=== PATIENT | male | born 1975 | race Caucasian/White ===

== ENCOUNTER 2016-06-14 05:26 | Inpatient (IN) | payer MEDICARE ==
[~2016-06-14] VITALS: Ht 170.2 cm; Wt 71.9 kg
[~2016-06-14 05:26] MED LIST: ALPR0.25 PO; FOLI-17 PO; MAGN400T26 PO; MULT-6 PO; OMEP-110 PO; ONDA4TAB10 PO; ONDA4TAB7 PO; QUET200T4 PO; SERT50TA PO; THIA100T10 PO; TRAM50TA2 PO
[2016-06-14] MEDS ORDERED: ONDANSETRON 2MG/ML, 2ML IVPush ONE (06:00)
[2016-06-14] MEDS ORDERED: SODIUM CHLORIDE 0.9% 1,000ML IVBOLUS ONE (06:00)
[2016-06-14] MEDS ORDERED: FAMOTIDINE 20 MG/2 ML IVP ONE (06:00)
[2016-06-14] MEDS ORDERED: MAALOX/HYOSCYAMINE/LIDOCAINE 45 ML BOTTLE PO ONE (06:00)
[2016-06-14] MEDS ORDERED: DICYCLOMINE 10 MG/ML, 2ML IM ONE (06:00)
[2016-06-14] MEDS ORDERED: SODIUM CHLORIDE FLUSH 10ML SYR IVF ONE (06:00)
[2016-06-14] MEDS ORDERED: ONDANSETRON 2MG/ML, 2ML ONE (06:13)
[2016-06-14] MEDS ORDERED: MAALOX/HYOSCYAMINE/LIDOCAINE 45 ML BOTTLE ONE (06:13)
[2016-06-14] MEDS ORDERED: FAMOTIDINE 20 MG/2 ML ONE (06:13)
[2016-06-14 07:03] LABS: HEMOGLOBIN 15.4 g/dL (13.7-18.0)
[2016-06-14 07:15] LABS: ASPARTATE AMINO TRANSFERASE 53 U/L (15-37); BLOOD UREA NITROGEN 42 mg/dL (7-18)
[2016-06-14] MEDS ORDERED: POTASSIUM CHLORIDE 20 MEQ TAB.ER.PRT ONE (07:22)
[2016-06-14] MEDS ORDERED: POTASSIUM CHLORIDE 20 MEQ TAB.ER.PRT PO ONE (07:30)
[2016-06-14] MEDS ORDERED: POTASSIUM CHLORIDE 40 MEQ in SODIUM CHLORIDE 0.9% 500 ML IV ONE (08:30)
[2016-06-14] MEDS: NS + 20MEQ KCL 1,000 ML IV SCH ×3 (09:16→22:33)
[2016-06-14] MEDS ORDERED: PROMETHAZINE 25 MG/ML, 1ML IM PRN (09:30)
[2016-06-14] MEDS ORDERED: POLYETHYLENE GLYCOL 17 GM PACKET PO PRN (09:30)
[2016-06-14] MEDS ORDERED: ONDANSETRON 2MG/ML, 2ML IVP PRN (09:30)
[2016-06-14] MEDS ORDERED: DOCUSATE 100 MG CAPSULE PO PRN (09:30)
[2016-06-14] MEDS ORDERED: OXYcodone IR 5MG TABLET PO PRN (09:30)
[2016-06-14] MEDS ORDERED: ACETAMINOPHEN 325 MG TABLET PO PRN (09:30)
[2016-06-14] MEDS ORDERED: CEFTRIAXONE PMX 1GM/50ML 50 ML ONE (10:02)
[2016-06-14] MEDS ORDERED: MORPHINE SULFATE 4 MG/ML, 1ML ONE (10:02)
[2016-06-14] MEDS: CEFTRIAXONE PMX 1GM/50ML 50 ML IV SCH (10:08)
[2016-06-14] MEDS: MORPHINE SULFATE 4 MG/ML, 1ML IVPush PRN ×2 (10:09→13:05)
[2016-06-14] MEDS ORDERED: PROMETHAZINE 25 MG/ML, 1ML ONE (11:03)
[2016-06-14 14:06] VITALS: BP 109/72
[2016-06-14 16:22] LABS: BLOOD UREA NITROGEN 35 mg/dL (7-18)
[2016-06-14] MEDS ORDERED: FLU VACC QS2016-17 (36MOS+)UP/PF 0.5 ML IM-VACC ONE (17:00)
[2016-06-14] MEDS: POTASSIUM CHLORIDE 20 MEQ TAB.ER.PRT PO SCH (19:09)
[2016-06-14 19:31] VITALS: BP 111/67
[2016-06-14 23:59] LABS: BLOOD UREA NITROGEN 26 mg/dL (7-18)
[2016-06-15] MEDS ORDERED: POTASSIUM CHLORIDE 20 MEQ TAB.ER.PRT PO ONE (00:30)
[2016-06-15] MEDS: NS + 40MEQ KCL 1,000 ML IV SCH ×3 (00:53→15:37)
[2016-06-15 01:24] VITALS: BP 126/86
[2016-06-15] MEDS: MORPHINE SULFATE 4 MG/ML, 1ML IVPush PRN ×5 (01:34→15:36)
[2016-06-15 05:21] LABS: BLOOD UREA NITROGEN 20 mg/dL (7-18)
[2016-06-15 05:22] LABS: HEMOGLOBIN 12.8 g/dL (13.7-18.0)
[2016-06-15 07:43] VITALS: BP 114/76
[2016-06-15] MEDS: CEFTRIAXONE PMX 1GM/50ML 50 ML IV SCH (09:02)
[2016-06-15] MEDS: POTASSIUM CHLORIDE 20 MEQ TAB.ER.PRT PO SCH ×2 (09:02→12:03)
[2016-06-15 14:34] VITALS: BP 120/81
[2016-06-15] MEDS: OXYcodone IR 5MG TABLET PO PRN (18:33)
[2016-06-15 19:49] VITALS: BP 115/76
[2016-06-16] MEDS: OXYcodone IR 5MG TABLET PO PRN ×3 (01:06→09:32)
[2016-06-16 01:43] VITALS: BP 126/83
[2016-06-16 04:36] LABS: BLOOD UREA NITROGEN 11 mg/dL (7-18)
[2016-06-16 07:07] VITALS: BP 127/86
[2016-06-16] MEDS: CEFTRIAXONE PMX 1GM/50ML 50 ML IV SCH (09:23)
== END 2016-06-16 11:05 | disposition home or self-care (01) | DRG 871 ==
LOC: ED 08:17 → EDIP 08:18 → ED 08:59 → 3NE 12:35 → DCLOUNGE 06-16 10:53
PROVIDERS: ADMIT Family Medicine; ATTEND Family Medicine
DX: A41.9 Sepsis, unspecified organism (principal); N17.0 Acute kidney failure with tubular necrosis; E87.1 Hypo-osmolality and hyponatremia; E86.0 Dehydration; E87.6 Hypokalemia; F20.9 Schizophrenia, unspecified; F31.9 Bipolar disorder, unspecified; G40.909 Epilepsy, unspecified, not intractable, without status epilepticus; Z86.19 Personal history of other infectious and parasitic diseases
CPT/HCPCS: 36415; 80048; 80053; 83735; 85025; 90686; 93005; 96361; 96365; 96366; 96372; 96375; J0696; J2405; J2550; J3480; J0500; J7030; J7040; S0028

== ENCOUNTER 2016-09-18 16:06 | Emergency (ER) | payer MEDICARE ==
[~2016-09-18] VITALS: Ht 180.3 cm; Wt 84.0 kg
[2016-09-18] MEDS ORDERED: SODIUM CHLORIDE 0.9% 1,000ML IVBOLUS ONE ×2 (16:30→17:30)
[2016-09-18 16:48] LABS: BLOOD UREA NITROGEN 4 mg/dL (7-18)
[2016-09-18 16:59] LABS: ASPARTATE AMINO TRANSFERASE 30 U/L (15-37)
[2016-09-18 17:00] LABS: ACETAMINOPHEN < 2 mcg/mL (10-30)
[2016-09-18] MEDS ORDERED: POTASSIUM CHLORIDE 20 MEQ TAB.ER.PRT ONE (17:18)
[2016-09-18] MEDS ORDERED: POTASSIUM CHLORIDE 20 MEQ TAB.ER.PRT PO ONE (17:30)
[2016-09-18 17:33] LABS: DAU SCREEN DISCLAIMER
[2016-09-18 19:47] VITALS: BP 104/70
== END 2016-09-18 19:59 | disposition home or self-care (01) ==
LOC: ED 16:59
DX: F10.120 Alcohol abuse with intoxication, uncomplicated (principal); F41.9 Anxiety disorder, unspecified; E87.6 Hypokalemia; F31.9 Bipolar disorder, unspecified; F20.9 Schizophrenia, unspecified
CPT/HCPCS: 36415; 80053; 80307; 80329; 81003; 85025; 96360; 96361; 99285; J7030; G0480

== ENCOUNTER 2016-11-08 20:19 | Inpatient (IN) | payer MEDICARE, MEDICAID ==
[~2016-11-08] VITALS: Ht 172.7 cm; Wt 79.7 kg
[~2016-11-08 20:19] MED LIST changes: +QUET25TA5 PO; +SERT25TA PO
[2016-11-08] MEDS ORDERED: FAMOTIDINE 20 MG/2 ML ONE (20:43)
[2016-11-08] MEDS ORDERED: ONDANSETRON 2MG/ML, 2ML ONE (20:43)
[2016-11-08 20:49] LABS: HEMATOCRIT 51.6 % (39.2-51.8); WHITE BLOOD COUNT 12.3 x10^3/uL (3.4-10)
[2016-11-08] MEDS ORDERED: FAMOTIDINE 20 MG/2 ML IVP ONE (21:00)
[2016-11-08] MEDS ORDERED: SODIUM CHLORIDE 0.9% 1,000ML IVBOLUS ONE ×2 (21:00→21:30)
[2016-11-08] MEDS ORDERED: SODIUM CHLORIDE FLUSH 10ML SYR IVF ONE (21:00)
[2016-11-08] MEDS ORDERED: ONDANSETRON 2MG/ML, 2ML IVPush ONE (21:00)
[2016-11-08 21:02] LABS: ASPARTATE AMINO TRANSFERASE 72 U/L (15-37); BLOOD UREA NITROGEN 42 mg/dL (7-18)
[2016-11-08 21:21] LABS: DAU SCREEN DISCLAIMER
[2016-11-08] MEDS ORDERED: SODIUM CHLORIDE 0.9% 1,000 ML IV ONE (21:59)
[2016-11-08] MEDS ORDERED: SODIUM CHLORIDE FLUSH 10ML SYR IVF PRN (22:00)
[2016-11-08] MEDS ORDERED: NS + 20MEQ KCL 1,000 ML IV ONE (22:22)
[2016-11-08] MEDS: NS + 20MEQ KCL 1,000 ML IV SCH (22:29)
[2016-11-08] MEDS ORDERED: LORazepam 2 MG/ML, 1ML IVPush PRN (22:30)
[2016-11-08] MEDS ORDERED: METOCLOPRAMIDE 5 MG/ML, 2ML IVPush PRN (22:30)
[2016-11-08] MEDS ORDERED: ACETAMINOPHEN 325 MG TABLET PO PRN (22:30)
[2016-11-08] MEDS: ENOXAPARIN 40 MG/0.4 ML SQ SCH (23:35)
[2016-11-08 23:41] VITALS: BP 128/73
[2016-11-09 02:00] VITALS: BP 129/60
[2016-11-09] MEDS: NS + 20MEQ KCL 1,000 ML IV SCH (04:40)
[2016-11-09 05:42] LABS: HEMATOCRIT 41.8 % (39.2-51.8); HEMOGLOBIN 13.9 g/dL (13.7-18.0); WHITE BLOOD COUNT 10.2 x10^3/uL (3.4-10)
[2016-11-09] MEDS: morphine SULFATE 10 MG/ML, 1ML IVPush PRN ×3 (05:50→20:18)
[2016-11-09] MEDS: ONDANSETRON 2MG/ML, 2ML IVPush PRN ×2 (05:50→21:58)
[2016-11-09 05:55] LABS: BLOOD UREA NITROGEN 33 mg/dL (7-18)
[2016-11-09] MEDS ORDERED: MORPHINE SULFATE 4 MG/ML, 1ML ONE (09:14)
[2016-11-09 09:40] VITALS: BP 113/74
[2016-11-09] MEDS ORDERED: POTASSIUM CHLORIDE 40 MEQ in SODIUM CHLORIDE 0.9% 500 ML IV ONE (10:00)
[2016-11-09] MEDS: PROMETHAZINE 25 MG/ML, 1ML IM PRN (11:19)
[2016-11-09] MEDS: PANTOPRAZOLE 40 MG IV IVPush SCH (14:37)
[2016-11-09 15:59] VITALS: BP 119/79
[2016-11-09 19:03] VITALS: BP 151/91
[2016-11-09] MEDS: OXYcodone IR 5MG TABLET PO PRN (21:58)
[2016-11-09] MEDS: ENOXAPARIN 40 MG/0.4 ML SQ SCH (22:04)
[2016-11-10 02:08] VITALS: BP 104/67
[2016-11-10] MEDS: ONDANSETRON 2MG/ML, 2ML IVPush PRN ×3 (04:17→19:44)
[2016-11-10] MEDS: morphine SULFATE 10 MG/ML, 1ML IVPush PRN ×3 (04:18→19:44)
[2016-11-10 06:15] LABS: HEMATOCRIT 45.2 % (39.2-51.8); HEMOGLOBIN 14.7 g/dL (13.7-18.0)
[2016-11-10 06:27] LABS: BLOOD UREA NITROGEN 14 mg/dL (7-18)
[2016-11-10 06:30] LABS: IS PT STATUS REG ER OR PRE ER? NO
[2016-11-10 06:31] LABS: ASPARTATE AMINO TRANSFERASE 61 U/L (15-37)
[2016-11-10 07:50] VITALS: BP 110/70
[2016-11-10] MEDS: PANTOPRAZOLE 40 MG IV IVPush SCH (08:05)
[2016-11-10] MEDS: PROMETHAZINE 25 MG/ML, 1ML IM PRN ×2 (08:05→13:37)
[2016-11-10] MEDS ORDERED: POTASSIUM CHLORIDE 40 MEQ in SODIUM CHLORIDE 0.9% 1,000 ML IV SCH (08:30)
[2016-11-10] MEDS: POTASSIUM CHLORIDE 20 MEQ TAB.ER.PRT PO SCH ×2 (10:03→17:40)
[2016-11-10] MEDS: OXYcodone IR 5MG TABLET PO PRN ×2 (13:37→22:27)
[2016-11-10 15:18] VITALS: BP 125/85
[2016-11-10 19:35] VITALS: BP 130/76
[2016-11-10] MEDS: POTASSIUM CHLORIDE 40 MEQ in SODIUM CHLORIDE 0.9% 1,000 ML IV SCH (19:44)
[2016-11-10] MEDS: ENOXAPARIN 40 MG/0.4 ML SQ SCH (22:29)
[2016-11-11 01:29] VITALS: BP 109/84
[2016-11-11] MEDS: morphine SULFATE 10 MG/ML, 1ML IVPush PRN (04:19)
[2016-11-11] MEDS: POTASSIUM CHLORIDE 40 MEQ in SODIUM CHLORIDE 0.9% 1,000 ML IV SCH ×2 (05:09→16:24)
[2016-11-11 07:19] VITALS: BP 119/79
[2016-11-11] MEDS: ONDANSETRON 2MG/ML, 2ML IVPush PRN (08:08)
[2016-11-11] MEDS: PANTOPRAZOLE 40 MG IV IVPush SCH (08:08)
[2016-11-11] MEDS: POTASSIUM CHLORIDE 20 MEQ TAB.ER.PRT PO SCH ×2 (08:08→18:20)
[2016-11-11] MEDS: OXYcodone IR 5MG TABLET PO PRN ×3 (12:36→23:44)
[2016-11-11 12:44] LABS: BLOOD UREA NITROGEN 10 mg/dL (7-18)
[2016-11-11] MEDS: ONDANSETRON ODT 4 MG PO PRN ×3 (12:45→23:44)
[2016-11-11 14:45] VITALS: BP 113/86
[2016-11-11 19:51] VITALS: BP 125/85
[2016-11-11] MEDS: ENOXAPARIN 40 MG/0.4 ML SQ SCH (22:36)
[2016-11-12 01:52] VITALS: BP 119/82
[2016-11-12] MEDS: ONDANSETRON ODT 4 MG PO PRN (04:10)
[2016-11-12] MEDS: OXYcodone IR 5MG TABLET PO PRN (04:10)
[2016-11-12 07:41] VITALS: BP 100/65
[2016-11-12] MEDS ORDERED: ONDA4TAB13 PO (10:21)
[2016-11-12 13:00] VITALS: BP 132/72
== END 2016-11-12 13:15 | disposition home or self-care (01) | DRG 391 ==
LOC: SUATTDRO 21:56 → ED 21:58 → EDIP 22:00 → ED 22:02 → 4NOR 23:36
PROC: 0T9B70Z Drainage of Bladder with Drainage Device, Via Natural or Artificial Opening (ICD-10-PCS; principal; 2016-11-10)
DX: K52.9 Noninfective gastroenteritis and colitis, unspecified (principal); N17.0 Acute kidney failure with tubular necrosis; E87.1 Hypo-osmolality and hyponatremia; E87.6 Hypokalemia; E86.0 Dehydration; E87.5 Hyperkalemia; E87.8 Other disorders of electrolyte and fluid balance, not elsewhere classified; F20.9 Schizophrenia, unspecified; F43.10 Post-traumatic stress disorder, unspecified; G40.909 Epilepsy, unspecified, not intractable, without status epilepticus; K76.0 Fatty (change of) liver, not elsewhere classified; S00.12XA Contusion of left eyelid and periocular area, initial encounter; K29.20 Alcoholic gastritis without bleeding; F10.10 Alcohol abuse, uncomplicated
CPT/HCPCS: 36415; 76700; 80048; 80053; 80307; 81001; 81003; 83690; 83735; 84100; 84484; 85025; 87086; 96361; 96374; J1650; J2405; J2550; J3480; Q0162; C9113; J2060; J2270; J2765; J7030; J7040; S0028

== ENCOUNTER 2017-04-02 04:08 | Emergency (ER) | payer MEDICARE, MEDICAID ==
[~2017-04-02] VITALS: Ht 172.7 cm; Wt 84.7 kg
[~2017-04-02 04:08] MED LIST changes: +NAPR-856 PO; +ONDA4TAB13 PO
[2017-04-02 08:15] VITALS: BP 119/69
== END 2017-04-02 08:56 | disposition home or self-care (01) ==
LOC: ED 06:12
DX: S53.401A Unspecified sprain of right elbow, initial encounter (principal); S00.83XA Contusion of other part of head, initial encounter; Y04.8XXA Assault by other bodily force, initial encounter; Y93.72 Activity, wrestling; Y92.410 Unspecified street and highway as the place of occurrence of the external cause; Y99.8 Other external cause status
CPT/HCPCS: 70100; 71045; 93005; 99284

== ENCOUNTER 2017-05-09 03:25 | Emergency (ER) | payer MEDICARE, MEDICAID ==
[~2017-05-09] VITALS: Ht 170.2 cm; Wt 70.0 kg
[2017-05-09] MEDS ORDERED: QUET50TA5 PO (04:09)
[2017-05-09] MEDS ORDERED: SERT25TA PO (04:09)
[2017-05-09] MEDS ORDERED: ALPR1TAB2 PO (04:09)
[2017-05-09] MEDS ORDERED: LORazepam 1MG TABLET ONE (04:45)
[2017-05-09] MEDS ORDERED: LORazepam 1MG TABLET PO ONE (05:00)
[2017-05-09 05:12] LABS: AMPHETAMINE SCREEN, URINE Negative (Negative); BARBITURATE SCREEN, URINE Negative (Negative); BENZODIAZEPINE SCREEN, URINE Negative (Negative); CANNABINOID SCREEN, URINE Negative (Negative); COCAINE SCREEN, URINE Negative (Negative); METHADONE SCREEN, URINE Negative (Negative); OPIATE SCREEN, URINE Negative (Negative)
[2017-05-09 05:20] LABS: BASOPHILS # (AUTO) 0.09 x10^3/uL (0-0.1); BASOPHILS % (AUTO) 1 % (0-1); EOSINOPHILS # (AUTO) 0.08 x10^3/uL (0-0.4); EOSINOPHILS % (AUTO) 1 % (1-7); LYMPHOCYTES # (AUTO) 2.49 x10^3/uL (1-3.4); LYMPHOCYTES % (AUTO) 32 % (22-44); MD NO; MEAN CORPUSCULAR HEMOGLOBIN 32.1 pg (27.5-34.5); MEAN CORPUSCULAR HGB CONC 33.4 g/dL (33.2-36.2); MEAN PLATELET VOLUME 8.5 fL (7.4-10.4); MONOCYTES # (AUTO) 1.01 x10^3/uL (0.2-0.8); MONOCYTES % (AUTO) 13 % (2-9); NEUTROPHILS # (AUTO) 4.04 x10^3/uL (1.8-6.8); NEUTROPHILS % (AUTO) 53 % (42-75); PLATELET COUNT 376 x10^3/uL (130-400); RED BLOOD COUNT 5.18 x10^6/uL (4.38-5.82)
[2017-05-09 05:33] LABS: ANION GAP 10 mmol/L (5-15); CALCIUM 8.3 mg/dL (8.5-10.1); CHLORIDE 97 mmol/L (98-107)
[2017-05-09 05:37] LABS: ALANINE AMINOTRANSFERASE 52 U/L (12-78); ALKALINE PHOSPHATASE 93 U/L (45-117); BILIRUBIN,TOTAL 0.9 mg/dL (0.2-1.0); CREATININE 1.05 mg/dL (0.7-1.3); TOTAL PROTEIN 8.9 g/dL (6.4-8.2)
[2017-05-09 05:44] LABS: ACETAMINOPHEN < 2 mcg/mL (10-30); SALICYLATE LEVEL < 1.7 mg/dL (2.8-20.0)
[2017-05-09 05:56] LABS: TROPONIN I < 0.015 ng/mL (0.000-0.045)
[2017-05-09] MEDS ORDERED: ONDANSETRON 2MG/ML, 2ML ONE ×3 (07:18→13:04)
[2017-05-09] MEDS ORDERED: ONDANSETRON 2MG/ML, 2ML IVPush ONE ×3 (07:30→17:30)
[2017-05-09 16:53] VITALS: BP 147/97
== END 2017-05-09 16:55 | disposition home or self-care (01) ==
LOC: ED 03:35
DX: F10.221 Alcohol dependence with intoxication delirium (principal); F31.9 Bipolar disorder, unspecified; F20.9 Schizophrenia, unspecified; F43.10 Post-traumatic stress disorder, unspecified
CPT/HCPCS: 36415; 80053; 80307; 80329; 84484; 85025; 93005; 96374; 96376; 99285; J2405; G0480

== ENCOUNTER 2017-06-17 01:54 | Emergency (ER) | payer MEDICARE, MEDICAID ==
[~2017-06-17] VITALS: Ht 172.7 cm; Wt 86.0 kg
[~2017-06-17 01:54] MED LIST changes: +ALPR1TAB2 PO; +QUET50TA5 PO
[2017-06-17] MEDS ORDERED: OMNIPAQUE 350 MG/ML, 100ML BOTTLE ONE (02:49)
[2017-06-17] MEDS ORDERED: SODIUM CHLORIDE 0.9% 1,000ML IVBOLUS ONE (03:00)
[2017-06-17 03:33] LABS: BASOPHILS # (AUTO) 0.02 x10^3/uL (0-0.1); BASOPHILS % (AUTO) 0 % (0-1); EOSINOPHILS # (AUTO) 0.04 x10^3/uL (0-0.4); EOSINOPHILS % (AUTO) 1 % (1-7); LYMPHOCYTES # (AUTO) 1.31 x10^3/uL (1-3.4); LYMPHOCYTES % (AUTO) 20 % (22-44); MD NO; MEAN CORPUSCULAR HEMOGLOBIN 32.2 pg (27.5-34.5); MEAN CORPUSCULAR HGB CONC 33.6 g/dL (33.2-36.2); MEAN CORPUSCULAR VOLUME 95.8 fL (81-97); MONOCYTES # (AUTO) 0.52 x10^3/uL (0.2-0.8); MONOCYTES % (AUTO) 8 % (2-9); NEUTROPHILS % (AUTO) 71 % (42-75); PLATELET COUNT 170 x10^3/uL (130-400); RED BLOOD COUNT 4.83 x10^6/uL (4.38-5.82); RED CELL DISTRIBUTION WIDTH 14.6 % (9.4-14.8)
[2017-06-17 03:43] LABS: ANION GAP 13 mmol/L (5-15); CHLORIDE 100 mmol/L (98-107); CREATININE 0.98 mg/dL (0.7-1.3)
[2017-06-17] MEDS ORDERED: ONDANSETRON 2MG/ML, 2ML ONE (05:24)
[2017-06-17] MEDS ORDERED: ACETAMINOPHEN 500 MG TABLET ONE (05:24)
[2017-06-17] MEDS ORDERED: ONDANSETRON 2MG/ML, 2ML IVPush ONE (05:30)
[2017-06-17] MEDS ORDERED: ACETAMINOPHEN 500 MG TABLET PO ONE (05:30)
[2017-06-17 05:36] VITALS: BP 134/84
== END 2017-06-17 05:39 | disposition home or self-care (01) ==
LOC: ED 04:08
DX: S06.891A Other specified intracranial injury with loss of consciousness of 30 minutes or less, initial encounter (principal); S30.1XXA Contusion of abdominal wall, initial encounter; S20.212A Contusion of left front wall of thorax, initial encounter; F10.129 Alcohol abuse with intoxication, unspecified; W10.0XXA Fall (on)(from) escalator, initial encounter; Y93.89 Activity, other specified; Y92.89 Other specified places as the place of occurrence of the external cause; Y99.8 Other external cause status; Z79.899 Other long term (current) drug therapy
CPT/HCPCS: 36415; 70450; 71260; 72125; 74177; 80048; 80307; 83690; 85025; 96361; 96374; 99285; J2405; J7030; Q9967

== ENCOUNTER 2017-09-17 23:33 | Inpatient (IN) | payer MEDICARE, MEDICAID ==
[~2017-09-17] VITALS: Ht 172.7 cm; Wt 86.4 kg
[2017-09-17] MEDS ORDERED: PROMETHAZINE 25 MG/ML, 1ML ONE (23:48)
[2017-09-17] MEDS ORDERED: ONDANSETRON 2MG/ML, 2ML ONE (23:48)
[2017-09-17] MEDS ORDERED: LORazepam 2 MG/ML, 1ML ONE (23:48)
[2017-09-17] MEDS: LORazepam 2 MG/ML, 1ML IVPush PRN (23:54)
[2017-09-17 23:59] LABS: MEAN CORPUSCULAR HEMOGLOBIN 33.2 pg (27.5-34.5); MEAN CORPUSCULAR HGB CONC 34.2 g/dL (33.2-36.2); MEAN CORPUSCULAR VOLUME 97.1 fL (81-97); MEAN PLATELET VOLUME 9.3 fL (7.4-10.4); PLATELET COUNT 181 x10^3/uL (130-400); RED BLOOD COUNT 4.87 x10^6/uL (4.38-5.82); RED CELL DISTRIBUTION WIDTH 13.4 % (9.4-14.8)
[2017-09-18] MEDS ORDERED: PROMETHAZINE 25 MG/ML, 1ML IM ONE
[2017-09-18] MEDS ORDERED: DIAZEPAM 5 MG/ML, 2ML IVPush ONE
[2017-09-18] MEDS ORDERED: MAGNESIUM SULFATE 1 GM, THIAMINE 100 MG, FOLIC ACID 1 MG, MVI ADULT 10 ML in SODIUM CHL... IV ONE
[2017-09-18] MEDS ORDERED: SODIUM CHLORIDE FLUSH 10ML SYR IVF ONE
[2017-09-18] MEDS ORDERED: ONDANSETRON 2MG/ML, 2ML IVPush ONE
[2017-09-18 00:09] LABS: INTERNATIONAL NORMALIZED RATIO 1.1 (0.93-1.1); PROTHROMBIN TIME 11.3 Seconds (9.6-11.5)
[2017-09-18 00:12] LABS: CHLORIDE 85 mmol/L (98-107)
[2017-09-18 00:13] LABS: ALANINE AMINOTRANSFERASE 45 U/L (12-78); ALBUMIN 3.9 g/dL (3.4-5.0); ANION GAP 13 mmol/L (5-15); CALCIUM 8.8 mg/dL (8.5-10.1)
[2017-09-18 00:15] LABS: ALKALINE PHOSPHATASE 67 U/L (45-117); BILIRUBIN,TOTAL 2.9 mg/dL (0.2-1.0); TOTAL PROTEIN 8.9 g/dL (6.4-8.2)
[2017-09-18 00:17] LABS: BASOPHILS # (AUTO) 0.07 x10^3/uL (0-0.1); BASOPHILS % (AUTO) 0 % (0-1); EOSINOPHILS # (AUTO) 0.01 x10^3/uL (0-0.4); EOSINOPHILS % (AUTO) 0 % (1-7); LYMPHOCYTES % (AUTO) 7 % (22-44); MD SCAN; MONOCYTES # (AUTO) 1.09 x10^3/uL (0.2-0.8); MONOCYTES % (AUTO) 5 % (2-9); NEUTROPHILS % (AUTO) 87 % (42-75)
[2017-09-18] MEDS ORDERED: SODIUM CHLORIDE 0.9% 1,000ML IVBOLUS ONE ×3 (00:30→01:30)
[2017-09-18] MEDS ORDERED: LORazepam 2 MG/ML, 1ML ONE ×2 (00:51→01:52)
[2017-09-18] MEDS: LORazepam 2 MG/ML, 1ML IVPush PRN ×2 (01:01→01:55)
[2017-09-18] MEDS ORDERED: CEFTRIAXONE PMX 1GM/50ML 50 ML ONE (01:18)
[2017-09-18] MEDS ORDERED: MORPHINE SULFATE 4 MG/ML, 1ML ONE (01:19)
[2017-09-18] MEDS ORDERED: PANTOPRAZOLE 40 MG IV ONE ×2 (01:19→08:30)
[2017-09-18] MEDS ORDERED: MORPHINE SULFATE 4 MG/ML, 1ML IVPush PRN (01:30)
[2017-09-18] MEDS ORDERED: PANTOPRAZOLE 40 MG IV IVPush ONE (01:30)
[2017-09-18] MEDS ORDERED: CEFTRIAXONE PMX 1GM/50ML 50 ML IV ONE (01:30)
[2017-09-18] MEDS ORDERED: METOCLOPRAMIDE 5 MG/ML, 2ML ONE (01:44)
[2017-09-18] MEDS ORDERED: METOCLOPRAMIDE 5 MG/ML, 2ML IVPush ONE (02:00)
[2017-09-18] MEDS ORDERED: POLYETHYLENE GLYCOL 17 GM PACKET PO PRN (02:30)
[2017-09-18] MEDS ORDERED: LORazepam 0.5MG TABLET PO PRN (02:30)
[2017-09-18] MEDS ORDERED: ACETAMINOPHEN 325 MG TABLET PO PRN (02:30)
[2017-09-18] MEDS ORDERED: LORazepam 1MG TABLET PO PRN ×4 (02:30)
[2017-09-18] MEDS ORDERED: ENOXAPARIN 40 MG/0.4 ML SQ SCH ×2 (02:30→08:30)
[2017-09-18 07:09] LABS: BASOPHILS # (AUTO) 0.04 x10^3/uL (0-0.1); BASOPHILS % (AUTO) 0 % (0-1); EOSINOPHILS # (AUTO) 0.04 x10^3/uL (0-0.4); EOSINOPHILS % (AUTO) 0 % (1-7); LYMPHOCYTES # (AUTO) 1.85 x10^3/uL (1-3.4); LYMPHOCYTES % (AUTO) 13 % (22-44); MD NO; MEAN CORPUSCULAR HEMOGLOBIN 32.5 pg (27.5-34.5); MEAN CORPUSCULAR HGB CONC 33.5 g/dL (33.2-36.2); MEAN CORPUSCULAR VOLUME 96.8 fL (81-97); MEAN PLATELET VOLUME 9.2 fL (7.4-10.4); MONOCYTES % (AUTO) 9 % (2-9); NEUTROPHILS # (AUTO) 10.68 x10^3/uL (1.8-6.8); NEUTROPHILS % (AUTO) 77 % (42-75); PLATELET COUNT 150 x10^3/uL (130-400); RED BLOOD COUNT 4.08 x10^6/uL (4.38-5.82); RED CELL DISTRIBUTION WIDTH 13.6 % (9.4-14.8)
[2017-09-18 07:21] LABS: ALANINE AMINOTRANSFERASE 36 U/L (12-78); ALBUMIN 3.2 g/dL (3.4-5.0); ANION GAP 10 mmol/L (5-15); CALCIUM 7.2 mg/dL (8.5-10.1); CHLORIDE 93 mmol/L (98-107); CREATININE 1.36 mg/dL (0.7-1.3)
[2017-09-18 07:23] LABS: ALKALINE PHOSPHATASE 50 U/L (45-117); BILIRUBIN,TOTAL 2.1 mg/dL (0.2-1.0); TOTAL PROTEIN 6.9 g/dL (6.4-8.2)
[2017-09-18] MEDS ORDERED: ENOXAPARIN 40 MG/0.4 ML ONE (08:30)
[2017-09-18] MEDS: PANTOPRAZOLE 40 MG IV IVPush SCH (08:32)
[2017-09-18] MEDS: D5%-0.9% NACL 1,000 ML IV SCH ×4 (10:40→23:00)
[2017-09-18] MEDS ORDERED: POTASSIUM CHLORIDE 20 MEQ, MAGNESIUM SULFATE 2 GM, THIAMINE 100 MG, MVI ADULT 10 ML, FO... IV SCH (11:00)
[2017-09-18 11:01] VITALS: BP 118/88
[2017-09-18 14:27] VITALS: BP 124/85
[2017-09-18] MEDS: ONDANSETRON 2MG/ML, 2ML IVPush PRN (14:35)
[2017-09-18 19:20] VITALS: BP 112/79
[2017-09-18] MEDS: PROMETHAZINE 25 MG/ML, 1ML IM PRN (20:00)
[2017-09-19] MEDS: ONDANSETRON 2MG/ML, 2ML IVPush PRN (00:10)
[2017-09-19 03:07] VITALS: BP 124/83
[2017-09-19] MEDS: PROMETHAZINE 25 MG/ML, 1ML IM PRN (03:55)
[2017-09-19] MEDS ORDERED: LIDOCAINE 2% VISCOUS, 100ML MM PRN (07:30)
[2017-09-19] MEDS ORDERED: KETOROLAC 30 MG/1 ML IVPush ONE (07:30)
[2017-09-19] MEDS ORDERED: MORPHINE SULFATE 4 MG/ML, 1ML IVPush PRN (07:30)
[2017-09-19] MEDS: D5%-0.9% NACL 1,000 ML IV SCH ×2 (07:48→19:30)
[2017-09-19] MEDS: PANTOPRAZOLE 40 MG IV IVPush SCH (07:48)
[2017-09-19] MEDS: MORPHINE SULFATE 4 MG/ML, 1ML IVPush PRN ×3 (07:48→20:38)
[2017-09-19 07:52] VITALS: BP 122/88
[2017-09-19 07:59] LABS: BASOPHILS # (AUTO) 0.05 x10^3/uL (0-0.1); BASOPHILS % (AUTO) 1 % (0-1); EOSINOPHILS % (AUTO) 1 % (1-7); LYMPHOCYTES # (AUTO) 1.16 x10^3/uL (1-3.4); LYMPHOCYTES % (AUTO) 15 % (22-44); MD NO; MEAN CORPUSCULAR HEMOGLOBIN 33.2 pg (27.5-34.5); MEAN CORPUSCULAR HGB CONC 34.1 g/dL (33.2-36.2); MEAN CORPUSCULAR VOLUME 97.4 fL (81-97); MEAN PLATELET VOLUME 8.4 fL (7.4-10.4); MONOCYTES # (AUTO) 0.81 x10^3/uL (0.2-0.8); MONOCYTES % (AUTO) 10 % (2-9); NEUTROPHILS # (AUTO) 5.65 x10^3/uL (1.8-6.8); NEUTROPHILS % (AUTO) 73 % (42-75); PLATELET COUNT 153 x10^3/uL (130-400); RED BLOOD COUNT 3.71 x10^6/uL (4.38-5.82); RED CELL DISTRIBUTION WIDTH 13.4 % (9.4-14.8)
[2017-09-19 08:08] LABS: ANION GAP 6 mmol/L (5-15); CALCIUM 7.5 mg/dL (8.5-10.1); CHLORIDE 101 mmol/L (98-107); CREATININE 1.04 mg/dL (0.7-1.3)
[2017-09-19 08:09] LABS: ALANINE AMINOTRANSFERASE 38 U/L (12-78); ALBUMIN 2.9 g/dL (3.4-5.0)
[2017-09-19 08:11] LABS: ALKALINE PHOSPHATASE 44 U/L (45-117); BILIRUBIN,TOTAL 1.7 mg/dL (0.2-1.0); TOTAL PROTEIN 6.5 g/dL (6.4-8.2)
[2017-09-19] MEDS: LIDOCAINE 2% VISCOUS 15 ML UDC MM PRN ×2 (08:11→13:24)
[2017-09-19] MEDS: POTASSIUM CHLORIDE 10% 40 MEQ/30 ML UDC PO SCH ×2 (08:11→20:30)
[2017-09-19 13:44] VITALS: BP 132/79
[2017-09-19 20:00] VITALS: BP 123/85
[2017-09-20] MEDS: LIDOCAINE 2% VISCOUS 15 ML UDC MM PRN ×3 (00:47→20:44)
[2017-09-20 02:00] VITALS: BP 135/89
[2017-09-20] MEDS: ONDANSETRON 2MG/ML, 2ML IVPush PRN ×2 (02:57→20:15)
[2017-09-20] MEDS: D5%-0.9% NACL 1,000 ML IV SCH (05:00)
[2017-09-20] MEDS: MORPHINE SULFATE 4 MG/ML, 1ML IVPush PRN (05:41)
[2017-09-20 05:45] LABS: ALBUMIN 2.9 g/dL (3.4-5.0); ANION GAP 5 mmol/L (5-15); CALCIUM 7.6 mg/dL (8.5-10.1); CHLORIDE 104 mmol/L (98-107)
[2017-09-20 05:51] LABS: ALANINE AMINOTRANSFERASE 49 U/L (12-78); ALKALINE PHOSPHATASE 46 U/L (45-117); BILIRUBIN,TOTAL 1.2 mg/dL (0.2-1.0); CREATININE 0.92 mg/dL (0.7-1.3); TOTAL PROTEIN 6.6 g/dL (6.4-8.2)
[2017-09-20 05:52] LABS: BASOPHILS # (AUTO) 0.02 x10^3/uL (0-0.1); BASOPHILS % (AUTO) 0 % (0-1); EOSINOPHILS # (AUTO) 0.15 x10^3/uL (0-0.4); EOSINOPHILS % (AUTO) 2 % (1-7); LYMPHOCYTES # (AUTO) 1.44 x10^3/uL (1-3.4); LYMPHOCYTES % (AUTO) 19 % (22-44); MD NO; MEAN CORPUSCULAR HEMOGLOBIN 33.2 pg (27.5-34.5); MEAN CORPUSCULAR HGB CONC 33.8 g/dL (33.2-36.2); MEAN CORPUSCULAR VOLUME 98.3 fL (81-97); MEAN PLATELET VOLUME 8.4 fL (7.4-10.4); MONOCYTES # (AUTO) 1.07 x10^3/uL (0.2-0.8); MONOCYTES % (AUTO) 14 % (2-9); NEUTROPHILS # (AUTO) 4.76 x10^3/uL (1.8-6.8); NEUTROPHILS % (AUTO) 64 % (42-75); PLATELET COUNT 174 x10^3/uL (130-400); RED BLOOD COUNT 3.56 x10^6/uL (4.38-5.82); RED CELL DISTRIBUTION WIDTH 13.5 % (9.4-14.8)
[2017-09-20 08:00] VITALS: BP 129/84
[2017-09-20] MEDS: PANTOPRAZOLE 40 MG IV IVPush SCH (08:26)
[2017-09-20] MEDS ORDERED: POTASSIUM PHOSPHATE 44 MEQ in SODIUM CHLORIDE 0.9% 500 ML IV ONE (10:00)
[2017-09-20 13:10] VITALS: BP 136/102
[2017-09-20 19:41] VITALS: BP 131/95
[2017-09-21] MEDS ORDERED: D5%-0.9% NACL 1,000 ML IV SCH
[2017-09-21 02:00] VITALS: BP 140/88
[2017-09-21] MEDS: ONDANSETRON 2MG/ML, 2ML IVPush PRN (02:09)
[2017-09-21] MEDS: LIDOCAINE 2% VISCOUS 15 ML UDC MM PRN (02:21)
[2017-09-21] MEDS ORDERED: ONDA4TAB7 PO (08:32)
[2017-09-21] MEDS ORDERED: THIAMINE 100MG TABLET PO SCH (09:00)
[2017-09-21] MEDS ORDERED: FOLIC ACID 1 MG TABLET PO SCH (09:00)
[2017-09-21] MEDS ORDERED: MULTIVITAMIN 1 TABLET PO SCH (09:00)
== END 2017-09-21 10:36 | disposition home or self-care (01) | DRG 438 ==
LOC: ED 23:35 → EDIP 09-18 01:46 → SUATTDRO 09-18 02:01 → 4EST 09-18 10:47 → DCLOUNGE 09-21 10:32
PROVIDERS: ADMIT Hospitalist; ATTEND Hospitalist
DX: K85.20 Alcohol induced acute pancreatitis without necrosis or infection (principal); R65.11 Systemic inflammatory response syndrome (SIRS) of non-infectious origin with acute organ dysfunction; N17.0 Acute kidney failure with tubular necrosis; E87.1 Hypo-osmolality and hyponatremia; F10.239 Alcohol dependence with withdrawal, unspecified; E87.6 Hypokalemia; Y90.9 Presence of alcohol in blood, level not specified; E86.0 Dehydration; F20.9 Schizophrenia, unspecified; F31.9 Bipolar disorder, unspecified; F41.1 Generalized anxiety disorder; F43.10 Post-traumatic stress disorder, unspecified; K76.0 Fatty (change of) liver, not elsewhere classified
CPT/HCPCS: 36415; 71045; 74176; 80053; 80307; 83690; 83735; 84100; 85025; 85610; 85730; 86850; 86900; 87040; 93005; 96372; 96374; 96375; 96376; J0696; J1650; J1885; J2405; J2550; J3360; J3411; J3475; J3480; J7042; C9113; J2060; J2765; J7030; J7040